=== PATIENT | female | born 1975 | race Caucasian/White ===

== ENCOUNTER 2022-04-16 02:16 | Emergency (ER) | payer MEDICAID, SELFPAY ==
[2022-04-16 02:19] VITALS: BP 119/73; PULSE 92; RESP 22; TEMP 36.6; O2SAT 99
--- NOTE | 2022-04-16 02:20 | ED.NAVMDI ---
HPI - Nausea/Vomiting/Diarrhea General Chief complaint: Nausea/Vomiting/Diarrhea <Solo Gates SENIOR C SOFTWARE DEVELOPER - Last Filed: 04/16/22 02:48> Stated complaint: vomiting <Solo Gates SENIOR C SOFTWARE DEVELOPER - Last Filed: 04/16/22 02:48> History of Present Illness HPI Narrative: 46-year-old female presents to the emergency room for evaluation of nausea and dry heaving. Patient states symptoms started approximately an hour and a half prior to arrival. Patient states that she just to the [facility] gummy approximately 4 hours ago, stating this is the first time she ever tried that. Patient also relates that she ate barbecue pork for dinner. Patient denies any abdominal pain. Denies any diarrhea. Patient also denies any episodes of vomiting. <Solo Gates SENIOR C SOFTWARE DEVELOPER - Last Filed: 04/16/22 02:48> Related Data Allergies/Adverse reactions: Allergies Allergy/AdvReac Type Severity Reaction Status Date / Time Penicillins Allergy Unknown Verified 04/16/22 02:18 <Solo Gates APRN - Last Filed: 04/16/22 02:48> Review of Systems Review of Systems: CONSTITUTIONAL: Denies fever, chills, or sweats. EYES: Denies visual changes, redness, or discharge. ENT: Denies rhinorrhea, congestion, sore throat, or otalgia. CARDIOVASCULAR: Denies chest pain, palpitations, or edema. RESPIRATORY: Denies cough or dyspnea. GASTROINTESTINAL: Reports nausea GENITOURINARY: Denies dysuria or hematuria. SKIN: Denies rash or itching. MUSCULOSKELETAL: Denies back pain, joint pain, or myalgia. NEUROLOGIC: Denies headache, numbness, dizziness, or weakness. PSYCHIATRIC: Denies anxiety or depression. <Solo Gates SENIOR C SOFTWARE DEVELOPER - Last Filed: 04/16/22 02:48> Exam Narrative: GENERAL: Well-appearing well-nourished HEAD: Normocephalic, atraumatic. EYES: PERRLA and EOMI. CHEST: Clear to auscultation. No respiratory distress. No wheezes rales or rhonchi HEART: Regular rate and rhythm. No murmur heard. Normal peripheral pulses. ABDOMEN: Soft, nontender, nondistended, normal active bowel sounds. EXTREMITIES: Normal range of motion. No edema. SKIN: Warm, dry, no rash. NEURO: No focal deficits. Alert and oriented x3. PSYCH: Normal mood and affect. <Solo Gates APRN - Last Filed: 04/16/22 02:48> Const: General: ill appearing <Solo Gates APRN - Last Filed: 04/16/22 02:48> Course Course Emergency Course: Patient no longer having emesis. Up and ambulatory without issue and in no distress. Discharge home. <Hiram Gannon MD - Last Filed: 04/16/22 04:10> Vital Signs Vital signs: Vital Signs Temperature 97.9 F 04/16/22 02:19 Pulse Rate 92 04/16/22 02:19 Respiratory Rate 22 H 04/16/22 02:19 Blood Pressure 119/73 04/16/22 02:19 Pulse Oximetry 99 04/16/22 02:19 Oxygen Delivery Room Air 04/16/22 02:19 Temperature 97.9 F 04/16/22 02:19 Pulse Rate 92 04/16/22 02:19 Respiratory Rate 22 H 04/16/22 02:19 Blood Pressure 104/58 L 04/16/22 02:31 Pulse Oximetry 99 04/16/22 02:19 Oxygen Delivery Room Air 04/16/22 02:19 <Solo Gates APRN - Last Filed: 04/16/22 02:48> Vital Signs Temperature 97.9 F 04/16/22 02:19 Pulse Rate 92 04/16/22 02:19 Respiratory Rate 22 H 04/16/22 02:19 Blood Pressure 119/73 04/16/22 02:19 Pulse Oximetry 99 04/16/22 02:19 Oxygen Delivery Room Air 04/16/22 02:19 Temperature 97.9 F 04/16/22 02:19 Pulse Rate 92 04/16/22 02:19 Respiratory Rate 22 H 04/16/22 02:19 Blood Pressure 104/58 L 04/16/22 02:31 Pulse Oximetry 99 04/16/22 02:19 Oxygen Delivery Room Air 04/16/22 02:19 <Hiram Gannon MD - Last Filed: 04/16/22 04:10> MDM - Nausea/Vomiting/Diarrhea Lab Data Result diagrams: : 04/16/22 02:32 04/16/22 02:32 <Solo Gates, SENIOR C SOFTWARE DEVELOPER - Last Filed: 04/16/22 02:48> Labs: Lab Results 04/16/22 04/16/22 04/16/22 Range/Units 02:32 02:32 03:53 WBC 9.8 (4.5-10.0) K/mm3 RBC 3.84 L
[2022-04-16] MEDS: METOCLOPRAMIDE HCL INJ 10 MG/2 ML VIAL IV PUSH (02:25)
[2022-04-16] MEDS: diphenhydrAMINE HCl INJ 50 MG/ML VIAL 25 MG IV PUSH (02:25)
[2022-04-16 02:31] VITALS: BP 104/58
[2022-04-16 02:37] LABS: Basophils Absolute Auto 0.1 K/mm3 (0.0-0.1); Basophils Percent Auto 0.5 % (0.2-1.2); Eosinophils Absolute Auto 0.1 K/mm3 (0-0.3); Eosinophils Percent Auto 0.9 % (0-4.4); Hematocrit 35.8 % (37.0-47.0); Hemoglobin 12.2 g/dL (12.0-15.0); Immature Granulocyte Absolute 0.03 K/mm3 (0.00-0.031); Immature Granulocyte Percent A 0.3 % (0-0.5); Lymphocytes Absolute Auto 2.93 K/mm3 (0.9-3.2); Lymphocytes Percent Auto 29.9 % (18.3-44.2); Mean Corpuscular HGB Conc 34.1 g/dl (32-36); Mean Corpuscular Hemoglobin 31.8 pg (26-34); Mean Corpuscular Volume 93.2 fl (80-100); Mean Platelet Volume 10.9 fl (7.4-10.4); Monocytes Percent Auto 10.6 % (2.6-8.5); Neutrophils Absolute Auto 5.7 K/mm3 (1.3-6.7); Neutrophils Percent Auto 57.8 % (45.5-73.1); Platelet Count Result 264 k/mm3 (150-375); Red Blood Count 3.84 M/mm3 (4.2-5.4); Red Cell Distribution Width 13.1 % (11.5-14.5); White Blood Count 9.8 K/mm3 (4.5-10.0)
[2022-04-16 02:49] LABS: Alanine Aminotransferase 14 U/L (6-35); Albumin Level 4.3 g/dL (3.5-5.1); Alkaline Phosphatase 49 U/L (38-126); Anion Gap 11 mmol/L (8-16); Aspartate Amino Transferase 22 U/L (14-36); Bilirubin,Total 0.2 mg/dL (0.2-1.3); Blood Urea Nitrogen 12 mg/dL (7-17); Calcium 8.4 mg/dL (8.4-10.2); Carbon Dioxide 20 mmol/L (22-30); Chloride 105 mmol/L (98-107); Estimated CRCL calculation 62 ml/min; Estimated Glomerular Filt Rate > 60; Glucose 152 mg/dL (65-110); Lipase 52 U/L (23-300); Sodium 136 mmol/L (137-145)
[2022-04-16] MEDS: POTASSIUM CHLORIDE 20 MEQ TABLET 40 MEQ PO (03:15)
[2022-04-16 03:59] LABS: Appearance Urine Clear (Clear); Bilirubin Urine Negative (Negative); Blood Urine Negative (Negative); Color Urine Yellow (Yellow); Glucose Urine UA Negative (Negative); Ketones Urine Negative (Negative); Leukocyte Esterase Ur Negative LEU/UL (Negative); Nitrate Urine Negative (Negative); Protein Urine Trace mg/dL (Negative); Specific Grav Ur >= 1.030 (1.001-1.035); Urobilinogen Urine 0.2 mg/dL (<2.0); pH Urine 5.5 (5.0-9.0)
[2022-04-16 04:03] LABS: Mucus Urine Few /lpf; RBC Urine 0-2 /hpf (0-2); Squamous Epithelial Cell Urine Occasional /hpf (Few); WBC Urine 0-3 /hpf
[2022-04-16 04:10] LABS: Add Urine Microscopic? YES
[2022-04-16 04:18] VITALS: BP 107/84; PULSE 62; RESP 16; O2SAT 98
== END 2022-04-16 04:18 | disposition home or self-care (01) ==
PROVIDERS: Emergency Provider Nurse Practitioner Family
DX: R11.0 Nausea (principal)
CPT/HCPCS: 36415; 80053; 81001; 83690; 85025; 96374; 96375; 99284; A9270; J1200; J2765